=== PATIENT | female | born 1955 | race Caucasian/White ===

== ENCOUNTER → 2020-09-25 14:49 | Outpatient (BNVA) | payer MEDICARE, SELFPAY | PROVIDERS: PCP Family Medicine; Visit Provider Hospitalist | DX: Z13.89 Encounter for screening for other disorder (principal) | CPT/HCPCS: Q3014 ==

== ENCOUNTER → 2020-12-21 13:01 | Outpatient (BNVA) | payer MEDICARE, SELFPAY | PROVIDERS: PCP Family Medicine; Visit Provider Hospitalist | DX: Z13.89 Encounter for screening for other disorder (principal) | CPT/HCPCS: Q3014 ==

== ENCOUNTER → 2021-04-25 13:04 | Outpatient (BNVA) | payer MEDICARE, SELFPAY | PROVIDERS: PCP Physician Assistant; Visit Provider Hospitalist | CPT/HCPCS: Q3014 ==

== ENCOUNTER → 2021-11-08 14:53 | Outpatient (BNVA) | payer MEDICARE, SELFPAY | PROVIDERS: PCP Physician Assistant; Visit Provider Hospitalist | DX: J45.50 Severe persistent asthma, uncomplicated (principal); J31.0 Chronic rhinitis; E27.40 Unspecified adrenocortical insufficiency; Z79.899 Other long term (current) drug therapy | CPT/HCPCS: Q3014 ==

== ENCOUNTER → 2022-04-10 14:05 | Outpatient (BNVA) | payer MEDICARE, SELFPAY | PROVIDERS: PCP Family Medicine; Visit Provider Hospitalist | DX: Z23 Encounter for immunization (principal); J45.50 Severe persistent asthma, uncomplicated | CPT/HCPCS: 90471; 90677; 90732; 99211 ==

== ENCOUNTER → 2022-05-27 14:59 | Outpatient (BNVA) | payer MEDICARE, SELFPAY | PROVIDERS: PCP Family Medicine; Visit Provider Hospitalist | DX: Z23 Encounter for immunization (principal); J45.50 Severe persistent asthma, uncomplicated | CPT/HCPCS: 90471; 90686; 99211 ==

== ENCOUNTER → 2023-02-11 08:49 | Outpatient (BNVA) | payer MEDICARE, SELFPAY | PROVIDERS: PCP Registered Nurse; Visit Provider Hospitalist | DX: J45.50 Severe persistent asthma, uncomplicated (principal); J31.0 Chronic rhinitis; M81.0 Age-related osteoporosis without current pathological fracture; E27.40 Unspecified adrenocortical insufficiency | CPT/HCPCS: 99212 ==

== ENCOUNTER 2024-02-16 08:32 | Outpatient (AMB) | payer MEDICARE, SELFPAY ==
[2024-02-16 08:35] VITALS: BP 120/78; PULSE 63; O2SAT 99; BMI 19.2
--- NOTE | 2024-02-16 08:35 | MHC.OFFVIS ---
Vital Signs 02/16/24 08:35 Height 5 ft 4 in Weight 112 lb BMI 19.2 BP 120/78 Blood Pressure Location Lt brachial Position Sitting Pulse 63 Pulse Source Pulse Oximeter Pulse Oximetry (%) 99 Oxygen Delivery Method Room Air Intake Visit Reasons: asthma [employer] Required: No Allergies adhesive tape Allergy (Severe, Verified 02/16/24 08:37) Rash animal dander Allergy (Severe, Verified 02/16/24 08:37) Rash hazelnut Allergy (Severe, Verified 02/16/24 08:37) Rash poison sumac extract Allergy (Severe, Verified 02/16/24 08:37) Lip/Tongue Swollen zileuton Allergy (Severe, Verified 02/16/24 08:37) rash enviromental Allergy (Severe, Uncoded 02/16/24 08:37) Asthma Attack Mold Allergy (Severe, Uncoded 02/16/24 08:37) Rash Nickel Allergy (Severe, Uncoded 02/16/24 08:37) Rash Shellfish Allergy Allergy (Severe, Uncoded 02/16/24 08:37) Rash Soy Allergy Allergy (Severe, Uncoded 02/16/24 08:37) Rash sumac Allergy (Severe, Uncoded 02/16/24 08:37) Anaphylaxis HPI Comments Details: The patient is a 68 y/o woman with a history of severe persistent asthma. Although, has had multiple exacerbations requiring prolonged courses of prednisone. This summer she has been doing well and she is on her maintenance Asmanex inhaler 3 puffs a day. She does have some allergy symptoms: nasal congestion, itchy eyes and post nasal drip. Mild in severity. We will recheck her allergy and immune She is not requiring her nebulized therapy. Unfortunately, she has developed severe osteoporosis. Therefore, trying to minimize her exposure to corticosteroids. She does not tolerate Long-acting beta blockers nor albuterol due to adverse side effects. She does tolerate Xopenex HFA. 09/25/20 the patient is a telephone visit today. The patient has significant asthma. She has been quarantined in her home for the last year because of the COVID-19 infections. She does have a immunocompromised state and significant asthma so therefore she is avoiding getting this virus. She has had significant allergic reactions even anaphylactic reactions she is very concerned about the potential reactions with the current COVID-19 vaccines. Therefore she is open the the Andres Andres vaccine will be safer to use. She is going to stay in quarantine until the vaccine is available for her. Or in the meantime she continues to be on her Asmanex twisthaler inhaler. This inhalers very effective in controlling her asthma symptoms. Because of her chronic prednisone use she does have adrenal insufficiency. She tolerates the Asmanex very well. She has tried and failed throughout the years multiple inhalers including: Advair, Flovent, QVAR, pulmicort. Therefore, will be important for her to stay on the current respiratory medication regimen that has been very effective in controlling her very severe asthma. 11/08/2021 the patient has a Virtual visit today. She overall has been doing well from a respiratory status. Since the pandemic started she has been her house and rarely leaves her home. She is home schooling her young daughter in taking all the potential precautions. She was vaccinated with the Andres Andres vaccine. She is waiting to hear about the booster to be able to get that specially since she is immunocompromised. She will be getting allergy testing to see if she is able to get the mRNA vaccine safely. We did talk about checking titers at some point after her booster in order to make sure that she did develop a robust response to the vaccine. she continues to be on hydro cortisone for the adrenal insufficiency. She also continues on the Asmanex. She did try to decrease the dose but she became symptomatic in requiring additional bronchodilator therapy. She has she has been taking the maintenance dose as well as her fluticasone and singular. also, will be important to mention that she did have 1 episode of an allergic reaction to something she ate she felt like her throat was closing and swelling of her lips and tongue. She did have an EpiPen but she did not use it. She took additional Asmanex and ultimately went to the emergency department. At that point she did not require any epinephrine. Her symptoms improved and there was an isolated event. 02/11/2023 the patient is here for a pulmonary follow-up visit. The patient overall is doing well. She is being extremely state with her health. Since she has been isolated and with minimal exposures she has not gotten sick in therefore has not gotten any asthma flare ups. She has not require any additional prednisone. She does take her baseline cortisone for her adrenal insufficiency. She also has been on Asmanex twice a day. She has required a short-acting beta agonist as needed but typically lasting once a week. She is very happy with her overall health at this time. No additional imaging studies to review. She does have nasal congestion. She does not want to do any nasal rinsing therapy. Typically is minimal amount of secretions. She does have fluticasone nasal spray and also Singulair for her allergies. 02/16/2024 the patient is here for pulmonary follow-up visit. The patient overall has been doing okay. She continues to stay primarily in her home. She does wear a mask when leaving the house. She is avoided infections and therefore she is avoided asthma exacerbations. She has not required any additional cortical steroid therapy. She continues on her baseline respiratory inhalers with good effect. Recently in the last several days she has had to use her rescue inhaler a little bit more. But typically less than 2 times a week. In part this has to do with the change season he humidity. In addition to that she is dealing with significant stress due to health issues in the household. If the patient continues to have worsening respiratory symptoms she will call the office. Currently her respiratory exam is very reassuring without any significant wheezing or crackles or rhonchi. Therefore, will continue with current respiratory therapy. She also continues with her allergy medicine. No other complaints at this time. [facility] Medical History (Updated 09/25/20 @ 20:20 by Koko Marley MD) Osteoporosis Chronic rhinitis Adrenal insufficiency Asthma Social History (Updated 04/25/21 @ 13:07 by FAUSTINO Fox) Patient Tobacco Use Status: Never used Tobacco Review of Systems Const Denies night sweats ENT Denies change in voice, Denies lip swelling, Denies mouth pain, Reports nasal congestion, Reports nasal discharge and Denies tongue swelling Card Denies chest pain Resp Reports cough GI Denies abdominal pain Musc Denies no additional complaints Neuro Denies Neuro-related abnormal movements Psych Denies no additional complaints Ivan/Lymph Denies easy bleeding and Denies lymphadenopathy Aller/Immun Denies lip swelling and Denies tongue swelling Physical Exam Vital Signs: Last Vital Signs Pulse 63 02/16/24 08:35 BP 120/78 02/16/24 08:35 Pulse Ox 99 02/16/24 08:35 Oxygen Delivery Method Room Air 02/16/24 08:35 BMI result Body Mass Index 19.2 Const General: comfortable HEENT Head: Yes atraumatic Eyes General: appearance normal, both eyes and all related structures Neck Neck: Yes supple Chest Chest palpation & inspection: normal inspection of the chest Resp Effort & Inspection: normal respiratory effort Auscultation: clear to auscultation bilaterally, no rales, no rhonchi and no wheezes Cardio Rate: regular rate Rhythm: regular rhythm Heart sounds: S1 normal heart sound present and S2 normal heart sound present GI Palpation (GI): Soft to palpation Skin General skin exam: no rashes or lesions noted Extrem General: Yes no clubbing, cyanosis or edema Assessment & Plan Assessment & Plan (1) Asthma: Code(s): J45.909 - Unspecified asthma, uncomplicated Category: Medical Qualifiers: Asthma complication type: uncomplicated Asthma persistence: persistent Asthma severity: severe Qualified Code(s): J45.50 - Severe persistent asthma, uncomplicated (2) Chronic rhinitis: Code(s): J31.0 - Chronic rhinitis Category: Medical (3) Adrenal insufficiency: Code(s): E27.40 - Unspecified adrenocortical insufficiency Category: Medical Plan continue Asmanex KIESHA as needed (xopenex) contiune singulair continue fluticasone nasal spray Prevnar 13, P23V (2020) F/U 1 yr Coding Level of Care Code Est Pt Level 4 (01820) Diagnoses Severe persistent asthma without complication J45.50 Asthma complication type: uncomplicated Asthma persistence: persistent Asthma severity: severe Chronic rhinitis J31.0 Adrenal insufficiency E27.40 Time Spent (min) 15
== END 2024-02-16 09:41 | disposition home or self-care (01) ==
PROVIDERS: PCP Registered Nurse; Visit Provider Hospitalist
DX: J45.50 Severe persistent asthma, uncomplicated (principal); J31.0 Chronic rhinitis; E27.40 Unspecified adrenocortical insufficiency
CPT/HCPCS: 99214

== ENCOUNTER → 2024-02-16 08:32 | Outpatient (BNVA) | payer MEDICARE, SELFPAY | PROVIDERS: PCP Registered Nurse; Visit Provider Hospitalist | DX: J45.50 Severe persistent asthma, uncomplicated (principal); J31.0 Chronic rhinitis; E27.40 Unspecified adrenocortical insufficiency | CPT/HCPCS: 99212 ==

== ENCOUNTER 2025-02-20 14:18 | Outpatient (AMB) | payer MEDICARE, SELFPAY ==
[2025-02-20 14:29] VITALS: BP 106/56; PULSE 60; O2SAT 98; BMI 20.6
--- NOTE | 2025-02-20 14:29 | A.OFFVIS_ITS ---
Vital Signs 02/20/25 14:29 Height 5 ft 4 in Weight 120 lb 2.431 oz BMI 20.6 BP 106/56 L Blood Pressure Location Rt brachial Position Sitting Pulse 60 Pulse Source Pulse Oximeter Pulse Oximetry (%) 98 Oxygen Delivery Method Room Air Intake Visit Reasons: asthma Allergies adhesive tape Allergy (Severe, Verified 02/20/25 14:31) Rash animal dander Allergy (Severe, Verified 02/20/25 14:31) Rash hazelnut Allergy (Severe, Verified 02/20/25 14:31) Rash poison sumac extract Allergy (Severe, Verified 02/20/25 14:31) Lip/Tongue Swollen zileuton Allergy (Severe, Verified 02/20/25 14:31) rash enviromental Allergy (Severe, Uncoded 02/16/24 08:37) Asthma Attack Mold Allergy (Severe, Uncoded 02/16/24 08:37) Rash Nickel Allergy (Severe, Uncoded 02/16/24 08:37) Rash Shellfish Allergy Allergy (Severe, Uncoded 02/16/24 08:37) Rash Soy Allergy Allergy (Severe, Uncoded 02/16/24 08:37) Rash sumac Allergy (Severe, Uncoded 02/16/24 08:37) Anaphylaxis HPI Comments Details: The patient is a 69 y/o woman with a history of severe persistent asthma. Although, has had multiple exacerbations requiring prolonged courses of pr ednisone. This summer she has been doing well and she is on her maintenance Asmanex inhaler 3 puffs a day. She does have some allergy symptoms: nasal congestion, itchy eyes and post nasal drip. Mild in severity. We will recheck her allergy and immune She is not requiring her nebulized therapy. Unfortunately, she has developed severe osteoporosis. Therefore, trying to minimize her exposure to corticosteroids. She does not tolerate Long-acting beta blockers nor albuterol due to adverse side effects. She does tolerate Xopenex HFA. 09/25/20 the patient is a telephone visit today. The patient has significant asthma. She has been quarantined in her home for the last year because of the COVID-19 infections. She does have a immunocompromised state and significant asthma so therefore she is avoiding getting this virus. She has had significant allergic reactions even anaphylactic reactions she is very concerned about the potential reactions with the current COVID-19 vaccines. Therefore she is open the the Andres Andres vaccine will be safer to use. She is going to stay in quarantine until the vaccine is available for her. Or in the meantime she continues to be on her Asmanex twisthaler inhaler. This inhalers very effective in controlling her asthma symptoms. Because of her chronic prednisone use she does have adrenal insufficiency. She tolerates the Asmanex very well. She has tried and failed throughout the years multiple inhalers including: Advair, Flovent, QVAR, pulmicort. Therefore, will be important for her to stay on the current respiratory medication regimen that has been very effective in controlling her very severe asthma. 11/08/2021 the patient has a Virtual visit today. She overall has been doing well from a respiratory status. Since the pandemic started she has been her house and rarely leaves her home. She is home schooling her young daughter in taking all the potential precautions. She was vaccinated with the Andres Andres vaccine. She is waiting to hear about the booster to be able to get that specially since she is immunocompromised. She will be getting allergy testing to see if she is able to get the mRNA vaccine safely. We did talk about checking titers at some point after her booster in order to make sure that she did develop a robust response to the vaccine. she continues to be on hydro cortisone for the adrenal insufficiency. She also continues on the Asmanex. She did try to decrease the dose but she became symptomatic in requiring additional bronchodilator therapy. She has she has been taking the maintenance dose as well as her fluticasone and singular. also, will be important to mention that she did have 1 episode of an allergic reaction to something she ate she felt like her throat was closing and swelling of her lips and tongue. She did have an EpiPen but she did not use it. She took additional Asmanex and ultimately went to the emergency department. At that point she did not require any epinephrine. Her symptoms improved and there was an isolated event. 02/11/2023 the patient is here for a pulmonary follow-up visit. The patient overall is doing well. She is being extremely state with her health. Since she has been isolated and with minimal exposures she has not gotten sick in therefore has not gotten any asthma flare ups. She has not require any additional prednisone. She does take her baseline cortisone for her adrenal insufficiency. She also has been on Asmanex twice a day. She has required a short-acting beta agonist as needed but typically lasting once a week. She is very happy with her overall health at this time. No additional imaging studies to review. She does have nasal congestion. She does not want to do any nasal rinsing therapy. Typically is minimal amount of secretions. She does have fluticasone nasal spray and also Singulair for her allergies. 02/16/2024 the patient is here for pulmonary follow-up visit. The patient overall has been doing okay. She continues to stay primarily in her home. She does wear a mask when leaving the house. She is avoided infections and therefore she is avoided asthma exacerbations. She has not required any additional cortical steroid therapy. She continues on her baseline respiratory inhalers with good effect. Recently in the last several days she has had to use her rescue inhaler a little bit more. But typically less than 2 times a week. In part this has to do with the change season he humidity. In addition to that she is dealing with significant stress due to health issues in the household. If the patient continues to have worsening respiratory symptoms she will call the office. Currently her respiratory exam is very reassuring without any significant wheezing or crackles or rhonchi. Therefore, will continue with current respiratory therapy. She also continues with her allergy medicine. No other complaints at this time. 02/20/2025 the patient is here for a pulmonary follow-up visit. Overall she is doing okay. She is has a few bouts of asthma which has been exacerbated by different irritants as far as the inhalation and also by sometimes choking on her own secretions sometimes causing her to have significant coughing spells and then bronchospasms. Typically improves after using her bronchodilator. She has not required any significant steroids at least for her breathing. She did take a COVID injection vaccine sometime ago it was an mRNA and the patient did have an allergic reaction to that causing her to have chest pressure and discomfort. Did not feel like her asthma. She did increase her prednisone medication while she was having that episode and she did not need the additional prednisone for about 3 days. Then the symptoms subsided. She did follow-up with the loan examiner for right now she is not going to do anymore mRNA COVID vaccines. She can consider other alternatives. The patient also is contemplating the RSV vaccine. She is not sure yet. But she will be a good candidate for. For now will current respiratory therapy. At some point she should have an x-ray but the patient is do so at this time specially because of concerns of getting sick in the hospital. [facility] Medical History (Updated 09/25/20 @ 20:20 by Koko Marley MD) Osteoporosis Chronic rhinitis Adrenal insufficiency Asthma Social History Patient Tobacco Use Status: Never used Tobacco Review of Systems Const Denies night sweats ENT Denies change in voice, Denies lip swelling, Denies mouth pain, Reports nasal congestion, Reports nasal discharge and Denies tongue swelling Card Denies chest pain Resp Reports cough GI Denies abdominal pain Musc Denies no additional complaints Neuro Denies Neuro-related abnormal movements Psych Denies no additional complaints Ivan/Lymph Denies easy bleeding and Denies lymphadenopathy Aller/Immun Denies lip swelling and Denies tongue swelling Physical Exam Vital Signs: Last Vital Signs Pulse 60 02/20/25 14:29 BP 106/56 L 02/20/25 14:29 Pulse Ox 98 02/20/25 14:29 Oxygen Delivery Method Room Air 02/20/25 14:29 BMI result Body Mass Index 20.6 Const General: comfortable HEENT Head: Yes atraumatic Eyes General: appearance normal, both eyes and all related structures Neck Neck: Yes supple Chest Chest palpation & inspection: normal inspection of the chest Resp Effort & Inspection: normal respiratory effort Auscultation: clear to auscultation bilaterally, no rales, no rhonchi and no wheezes Cardio Rate: regular rate Rhythm: regular rhythm Heart sounds: S1 normal heart sound present and S2 normal heart sound present GI Palpation (GI): Soft to palpation Skin General skin exam: no rashes or lesions noted Extrem General: Yes no clubbing, cyanosis or edema Assessment & Plan Assessment & Plan (1) Asthma: Code(s): J45.909 - Unspecified asthma, uncomplicated Category: Medical Qualifiers: Asthma complication type: uncomplicated Asthma persistence: persistent Asthma severity: severe Qualified Code(s): J45.50 - Severe persistent asthma, uncomplicated (2) Chronic rhinitis: Code(s): J31.0 - Chronic rhinitis Category: Medical (3) Adrenal insufficiency: Code(s): E27.40 - Unspecified adrenocortical insufficiency Category: Medical Plan continue Asmanex KIESHA as needed (xopenex) contiune singulair continue fluticasone nasal spray Prevnar 13, P23V (2020) CXR-pt declined consider barium swallow F/U 1 yr Medications: Refilled epinephrine (EpiPen 2-Sagar) for 2 doses 0.3 mg (0.3 mL) IM Q10M PRN 2 ea 6RF anaphylaxis 30 days J45.40 - Moderate persistent asthma, uncomplicated Coding Level of Care Code Est Pt Level 4 (75257) Complex EM visit Add On G2211 Diagnoses Severe persistent asthma without complication J45.50 Asthma complication type: uncomplicated Asthma persistence: persistent Asthma severity: severe Chronic rhinitis J31.0 Adrenal insufficiency E27.40 Time Spent (min) 20
== END 2025-02-20 15:06 | disposition home or self-care (01) ==
LOC: HO.HPS 14:19
PROVIDERS: PCP Registered Nurse; Visit Provider Hospitalist
DX: J45.50 Severe persistent asthma, uncomplicated (principal); J31.0 Chronic rhinitis; E27.40 Unspecified adrenocortical insufficiency
CPT/HCPCS: 99214; G2211

== ENCOUNTER → 2025-02-20 14:18 | Outpatient (BNVA) | payer MEDICARE, SELFPAY | PROVIDERS: PCP Registered Nurse; Visit Provider Hospitalist | DX: J45.50 Severe persistent asthma, uncomplicated (principal); J31.0 Chronic rhinitis; E27.40 Unspecified adrenocortical insufficiency; Z79.899 Other long term (current) drug therapy | CPT/HCPCS: 99212 ==